=== PATIENT | female | born 1975 | race Caucasian/White ===

== ENCOUNTER 2023-01-07 13:36 | Emergency (ER) | payer OTHER ==
[2023-01-07] MEDS: Aspirin 81 MG Tab.Chew PO ONE (14:04)
[2023-01-07] MEDS: Aspirin 81 MG Tab.Chew ONE (14:06)
[2023-01-07] MEDS: Ketorolac 30 MG/ML SDV IVPUSH ONE (14:07)
[2023-01-07 14:15] LABS: BASOPHILS ABSOLUTE AUTO 0.01 K/uL (0.00-0.20); BASOPHILS PERCENT AUTO 0.2 % (0.0-2.0); EOSINOPHILS PERCENT AUTO 1.5 % (0.0-5.0); HEMATOCRIT 42.4 % (34.0-46.0); HEMOGLOBIN 14.3 g/dL (11.7-15.5); LYMPHOCYTES ABSOLUTE AUTO 3.12 K/uL (0.50-3.50); LYMPHOCYTES PERCENT AUTO 46.9 % (10.0-50.0); MEAN CORPUSCULAR HEMOGLOBIN 31.3 pg (28.2-33.3); MEAN CORPUSCULAR HGB CONC 33.7 g/dL (31.7-36.0); MEAN CORPUSCULAR VOLUME 92.8 fL (84.0-98.0); MONOCYTES ABSOLUTE AUTO 0.46 K/uL (0.00-1.00); MONOCYTES PERCENT AUTO 6.9 % (2.0-14.0); NEUTROPHILS ABSOLUTE AUTO 2.96 K/uL (1.40-7.00); NEUTROPHILS PERCENT AUTO 44.5 % (45.0-80.0); PLATELET COUNT,PLT 204 K/uL (150-350); RED BLOOD CELL COUNT 4.57 M/uL (3.77-5.09); RED CELL DISTRIBUTION WIDTH 13.3 % (11.2-14.1); WHITE BLOOD CELL COUNT,WBC 6.7 K/uL (4.0-10.2)
[2023-01-07 14:33] LABS: ALBUMIN 3.5 g/dL (3.4-5.0); BILIRUBIN TOTAL 0.3 mg/dL (0.2-1.0); CALCIUM 8.4 mg/dL (8.5-10.1); CARBON DIOXIDE,CO2 24.1 mmol/L (21.0-32.0); CREATININE 0.72 mg/dL (0.51-1.17); EST CRCL DRUG DOSING (CG) 88.48 mL/min; PROTEIN TOTAL,TP 6.5 g/dL (6.4-8.2)
[2023-01-07 14:34] LABS: ANION GAP 15.9 meq/L (7-15)
== END 2023-01-07 15:31 | disposition home or self-care (01) ==
LOC: LL.ED 13:36
DX: R07.89 Other chest pain (principal); R05.9 Cough, unspecified; E78.00 Pure hypercholesterolemia, unspecified; Z79.899 Other long term (current) drug therapy
CPT/HCPCS: 36415; 71045; 80053; 83690; 84484; 85025; 93005; 96374; 99285; A9270; J1885

== ENCOUNTER 2024-12-20 07:53 | Day surgery (SDC) | payer OTHER ==
[2024-12-20] MEDS ORDERED: Sodium Chloride 0.9% 10 ML Syringe FLUSH PRN (08:00)
[2024-12-20] MEDS ORDERED: Midazolam 1 MG/ML 2 ML SDV ONE (08:23)
[2024-12-20] MEDS ORDERED: Propofol 200 MG/20 ML SDV ONE (08:23)
[2024-12-20] MEDS: Lactated Ringers 1,000 ML IV SCH (08:32)
[2024-12-20] MEDS ORDERED: Ondansetron 4 MG/2 ML SDV IVPUSH ONE (09:15)
== END 2024-12-20 10:36 | disposition home or self-care (01) ==
LOC: LL.SDS 07:53
PROVIDERS: ATTEND Surgery
DX: K31.A11 Gastric intestinal metaplasia without dysplasia, involving the antrum (principal); K21.9 Gastro-esophageal reflux disease without esophagitis
CPT/HCPCS: 00813; J1596; J2250; J2405; J2704; J7120